=== PATIENT | female | born 2000 | race Caucasian/White ===

== ENCOUNTER 2023-10-01 21:33 | Emergency (ER) | payer OTHER ==
[~2023-10-01] VITALS: Ht 165.1 cm; Wt 78.0 kg
[2023-10-01 22:05] VITALS: O2SAT 100
[2023-10-02] MEDS: TETANUS, DIPHTHERIA, PERTUSSIS VAC/PF 0.5ML (>10YR OLD) IM ONE (00:14)
[2023-10-02] MEDS: BACITRACIN 14GM TUBE TOP ONE (02:18)
[2023-10-02] MEDS: ACETAMINOPHEN 325MG TABLET PO ONE (02:18)
[2023-10-02] MEDS ORDERED: TOPUD MT (02:32)
[2023-10-02 02:43] VITALS: BP 128/70; PULSE 66; RESP 14; TEMP 98.1
== END 2023-10-02 02:21 | disposition home or self-care (01) ==
LOC: ER 21:33
DX: S50.812A Abrasion of left forearm, initial encounter (principal); S50.811A Abrasion of right forearm, initial encounter; S80.812A Abrasion, left lower leg, initial encounter; S80.811A Abrasion, right lower leg, initial encounter; M54.2 Cervicalgia; Y04.0XXA Assault by unarmed brawl or fight, initial encounter; Y93.89 Activity, other specified; Y92.89 Other specified places as the place of occurrence of the external cause; Y99.8 Other external cause status
CPT/HCPCS: 99285; 70450; 72125; 90715; 90471; Z7610